=== PATIENT | female | born 1935 | race African-American/Black ===

== ENCOUNTER 2022-04-11 10:21 | Inpatient (IN) ==
[2022-04-11] MEDS ORDERED: ONDANSETRON 4 MG/2 ML VIAL ONE (11:00)
[2022-04-11] MEDS ORDERED: ONDANSETRON 4 MG/2 ML VIAL IV STA (11:06)
[2022-04-11] MEDS ORDERED: SODIUM CHLORIDE 0.9% 1,000 ML IV STA (11:12)
[2022-04-11 11:32] LABS: Eosinophils % 0.7 % (0.00-10.9); Hematocrit 34.5 VOL% (35.7-47.0); Hemoglobin 10.9 GM/DL (12.0-16.0); Immature Granulocytes % 0.7 %; Immature Granulocytes Absolute 0.03 #; Lymphocytes # 1.7 10*3/uL (1.4-4.0); Lymphocytes % 42.6 % (21.3-54.2); Mean Corpuscular HGB Conc 31.6 GM/DL (32-36); Mean Corpuscular Volume 102.7 FL (87-102); Mean Platelet Volume 10.9 FL (9.6-12.0); Monocytes # 0.1 10*3/uL (0.11-0.8); Monocytes % 2.7 % (1.7-12.7); Neutrophils % 53.3 % (38.7-73.9); Platelet Count 139 T/CUMM (130-400); Red Blood Count 3.36 MC/CUMM (3.8-5.5); Red Cell Distribution Width 23.9 % (9.3-17.3)
[2022-04-11 11:41] LABS: Albumin 2.5 G/DL (3.4-5.0); Bilirubin,Total 0.7 MG/DL (0.20-1.00); Calcium 8.7 MG/DL (8.5-10.1); Osmolality,Calculated 294.4 MOS/KG (273-304); Potassium 3.3 MMOL/L (3.5-5.1); Total Protein 9.4 G/DL (6.4-8.2)
[2022-04-11 13:13] LABS: Bacteria,Urine Occasional /HPF (Few); Bilirubin,Urine Negative (Negative); Blood, Urine Small mg/dL (Negative); Glucose,Urine (UA) 50 mg/dL (Negative); Ketones,Urine Negative (Negative); Mucus,Urine Occasional /LPF (Occasional); Nitrite,Urine Negative (Negative); Protein,Urine >=500 mg/dL (Negative); RBC,Urine 5 /HPF (0-4); Squamous Epithelial Cell,Urine Occasional /HPF (0-10); Urine Appearance Slightly Hazy (Clear); Urine Color Yellow (Yellow); Urine Specific Gravity 1.013 (1.001-1.035); Urine Urobilinogen < 2.0 eU/dL (<2.0)
[2022-04-11 15:00] LABS: INR 1.2; PT Patient Result 12.8 SECS (10.1-12.1); Partial Thromboplastin Time 25.4 SECS (23.7-32.9)
[2022-04-11] MEDS ORDERED: ONDANSETRON 4 MG/2 ML VIAL IV PRN (15:02)
[2022-04-11] MEDS ORDERED: ACETAMINOPHEN 325 MG TABLET PO PRN (15:02)
[2022-04-11] MEDS ORDERED: ENOXAPARIN 30 MG/0.3 ML SYRINGE SUBCUT SCH (15:30)
[2022-04-11] MEDS ORDERED: SODIUM CHLORIDE 0.9% 1,000 ML IV SCH (15:30)
[2022-04-11] MEDS: SODIUM CHLORIDE 0.45% 1,000 ML IV SCH (17:26)
[2022-04-11] MEDS: HEPARIN 5,000 UNIT/1 ML VIAL SUBCUT SCH (17:26)
[2022-04-11] MEDS: INSULIN REGULAR 100 UNIT/ML SUBCUT SCH (23:49)
[2022-04-12] MEDS: HEPARIN 5,000 UNIT/1 ML VIAL SUBCUT SCH ×2 (01:05→09:01)
[2022-04-12] MEDS: LEVOTHYROXINE 125 MCG TABLET PO SCH (06:22)
[2022-04-12 06:23] LABS: Basophils % 0.4 % (0.0-0.8); Eosinophils # 0.1 10*3/uL (0.0-0.87); Eosinophils % 2.2 % (0.00-10.9); Hematocrit 28.5 VOL% (35.7-47.0); Hemoglobin 9.3 GM/DL (12.0-16.0); Immature Granulocytes % 0.2 %; Immature Granulocytes Absolute 0.01 #; Lymphocytes # 1.2 10*3/uL (1.4-4.0); Lymphocytes % 25.1 % (21.3-54.2); Mean Corpuscular HGB Conc 32.6 GM/DL (32-36); Mean Corpuscular Volume 101.4 FL (87-102); Mean Platelet Volume 9.9 FL (9.6-12.0); Monocytes # 0.3 10*3/uL (0.11-0.8); Monocytes % 6.7 % (1.7-12.7); Neutrophils % 65.4 % (38.7-73.9); Platelet Count 142 T/CUMM (130-400); Red Blood Count 2.81 MC/CUMM (3.8-5.5); White Blood Count 4.6 T/CUMM (4-12)
[2022-04-12 06:44] LABS: Calcium 8.3 MG/DL (8.5-10.1); Osmolality,Calculated 292.1 MOS/KG (273-304); Potassium 3.2 MMOL/L (3.5-5.1); Risk Ratio 2.94; VLDL Cholesterol 16.4 MG/DL
[2022-04-12] MEDS ORDERED: POTASSIUM CHLORIDE 20 MEQ TABLET PO ONE (08:11)
[2022-04-12] MEDS: INSULIN REGULAR 100 UNIT/ML SUBCUT SCH ×3 (08:50→16:36)
[2022-04-12] MEDS ORDERED: OLMESARTAN HYDROCHLOROTHIAZIDE PO SCH (09:00)
[2022-04-12] MEDS ORDERED: CLOPIDOGREL 75 MG TABLET PO SCH (09:00)
[2022-04-12] MEDS: ASPIRIN EC 81 MG TABLET PO SCH (09:01)
[2022-04-12] MEDS: PANTOPRAZOLE 40 MG TABLET PO SCH (09:02)
[2022-04-12] MEDS: METOPROLOL SUCCINATE XL 50 MG TABLET PO SCH (09:02)
[2022-04-12] MEDS: amLODIPine 10 MG TABLET PO SCH (09:02)
[2022-04-12] MEDS ORDERED: GLUCAGON 1 MG VIAL IM PRN (10:18)
[2022-04-12] MEDS ORDERED: DEXTROSE 10% 250 ML BAG IV PRN (10:21)
[2022-04-12 10:25] LABS: Calcium 8.5 MG/DL (8.5-10.1); Osmolality,Calculated 282.8 MOS/KG (273-304); Potassium 4.2 MMOL/L (3.5-5.1)
[2022-04-12] MEDS ORDERED: MAGNESIUM SULF RIDER 2 GM/50 ML PREMIX IV ONE (10:30)
[2022-04-12 11:01] LABS: % Iron Saturation 49.2 % (18-50); Ferritin 1164.3 ng/mL (8-252)
[2022-04-12] MEDS: SODIUM CHLORIDE 0.45% 1,000 ML IV SCH (12:12)
[2022-04-12] MEDS: hydrALAZINE 20 MG/1 ML VIAL IV PRN (12:27)
[2022-04-12] MEDS: DORZOLAMIDE 2% OPH SOLN 10 ML BOTTLE BOTH EYES SCH (20:18)
[2022-04-12] MEDS: APIXABAN 5 MG TABLET PO SCH (20:18)
[2022-04-12] MEDS: TIMOLOL 0.5% OPH SOLN 5 ML BOTTLE BOTH EYES SCH (20:18)
[2022-04-13] MEDS: INSULIN REGULAR 100 UNIT/ML SUBCUT SCH ×5 (00:25→20:31)
[2022-04-13] MEDS: hydrALAZINE 20 MG/1 ML VIAL IV PRN ×2 (01:13→11:55)
[2022-04-13 02:43] LABS: Folate 14.85 NG/ML (5.38-24.0)
[2022-04-13] MEDS: LEVOTHYROXINE 125 MCG TABLET PO SCH (05:39)
[2022-04-13] MEDS ORDERED: POTASSIUM CHLORIDE 20 MEQ TABLET PO ONE (07:49)
[2022-04-13] MEDS: APIXABAN 5 MG TABLET PO SCH ×2 (08:05→20:44)
[2022-04-13] MEDS: METOPROLOL SUCCINATE XL 50 MG TABLET PO SCH (08:05)
[2022-04-13] MEDS: PANTOPRAZOLE 40 MG TABLET PO SCH (08:05)
[2022-04-13] MEDS: ASPIRIN EC 81 MG TABLET PO SCH (08:05)
[2022-04-13] MEDS: amLODIPine 10 MG TABLET PO SCH (08:05)
[2022-04-13] MEDS: hydrALAZINE 25 MG TABLET PO SCH ×3 (08:06→20:44)
[2022-04-13] MEDS: DORZOLAMIDE 2% OPH SOLN 10 ML BOTTLE BOTH EYES SCH ×2 (08:08→20:47)
[2022-04-13] MEDS: TIMOLOL 0.5% OPH SOLN 5 ML BOTTLE BOTH EYES SCH ×2 (08:08→20:45)
[2022-04-13] MEDS: SODIUM CHLORIDE 0.45% 1,000 ML IV SCH (08:11)
[2022-04-14] MEDS: hydrALAZINE 20 MG/1 ML VIAL IV PRN (04:04)
[2022-04-14] MEDS: LEVOTHYROXINE 125 MCG TABLET PO SCH (05:59)
[2022-04-14] MEDS: INSULIN REGULAR 100 UNIT/ML SUBCUT SCH ×2 (07:37→14:35)
[2022-04-14] MEDS: amLODIPine 10 MG TABLET PO SCH (08:03)
[2022-04-14] MEDS: ASPIRIN EC 81 MG TABLET PO SCH (08:03)
[2022-04-14] MEDS: METOPROLOL SUCCINATE XL 50 MG TABLET PO SCH (08:03)
[2022-04-14] MEDS: APIXABAN 5 MG TABLET PO SCH (08:03)
[2022-04-14] MEDS: hydrALAZINE 25 MG TABLET PO SCH (08:03)
[2022-04-14] MEDS: PANTOPRAZOLE 40 MG TABLET PO SCH (08:04)
[2022-04-14] MEDS: TIMOLOL 0.5% OPH SOLN 5 ML BOTTLE BOTH EYES SCH (09:35)
[2022-04-14] MEDS: DORZOLAMIDE 2% OPH SOLN 10 ML BOTTLE BOTH EYES SCH (09:35)
[2022-04-14] MEDS ORDERED: HYDROCORTISONE 2.5% CREAM 30 GM TUBE TOP PRN (11:30)
[2022-04-14 11:46] VITALS: BP 175/66
== END 2022-04-14 15:24 | disposition home or self-care (01) | DRG 312 ==
LOC: SUATTDRO → N.EDINP 10:21 → N.ED 10:21 → N.2W 04-12 08:15 → SUATTDRO 04-12 08:17 → N.2W 04-12 08:34
PROVIDERS: ADMIT Emergency Medicine; ATTEND Internal Medicine